=== PATIENT | male | born 1975 | race Caucasian/White ===

== ENCOUNTER 2021-10-28 05:20 | Emergency (ER) | payer MEDICAID ==
[~2021-10-28] VITALS: Ht 162.6 cm; Wt 46.0 kg
[~2021-10-28 05:20] MED LIST: METH-818 PO
[2021-10-28] MEDS ORDERED: MIDAZOLAM HCL 2 MG/2 ML VIAL IV ONE (05:45)
[2021-10-28] MEDS ORDERED: SODIUM CHLORIDE 0.9% 1,000 ML IV ONE (05:45)
[2021-10-28] MEDS ORDERED: CHLORDIAZEPOXIDE 25MG CAPSULE PO ONE (05:45)
[2021-10-28 07:03] LABS: CHLORIDE 97 mEq/L (98-107)
[2021-10-28 07:06] LABS: BASOPHILS % 0.5 % (0.0-2.0); HEMATOCRIT. 40.1 % (42.0-52.0); HEMOGLOBIN. 13.4 g/dL (14.0-18.0); LYMPHOCYTES % 7.3 % (20.0-50.0); MEAN CORPUSCULAR HEMOGLOBIN 30.6 pg (28.0-32.0); MEAN CORPUSCULAR VOLUME 91.5 fL (80.0-94.0); MEAN PLATELET VOLUME 8.9 fl (7.4-10.4); MONOCYTES % 6.6 % (2.0-8.0); NEUTROPHILS % 85.6 % (40.0-76.0); PLATELET 67 x1000/uL (130-400); RED BLOOD CELL COUNT 4.39 mill/uL (4.7-6.1); RED CELL DISTRIBUTION WIDTH 14.8 % (11.6-14.6)
[2021-10-28 07:12] LABS: ETHANOL BLOOD < 10 mg/dL
[2021-10-28] MEDS ORDERED: L25 PO (08:19)
[2021-10-28 08:31] VITALS: BP 150/80
== END 2021-10-28 09:16 | disposition home or self-care (01) ==
LOC: ER 05:20
DX: F10.239 Alcohol dependence with withdrawal, unspecified (principal); R10.9 Unspecified abdominal pain; Y90.0 Blood alcohol level of less than 20 mg/100 ml; K70.30 Alcoholic cirrhosis of liver without ascites
CPT/HCPCS: 36415; 80053; 80320; 85025; 96361; 96374; 99283; J2250; J7030; G0480

== ENCOUNTER 2021-12-29 15:42 | Inpatient (IN) | payer MEDICAID ==
[~2021-12-29] VITALS: Ht 167.6 cm; Wt 51.3 kg
[~2021-12-29 15:42] MED LIST changes: +L25 PO
[2021-12-29] MEDS ORDERED: MAGNESIUM 2 G PREMIX 50 ML IV ONE (17:15)
[2021-12-29] MEDS ORDERED: SODIUM CHLORIDE 0.9% 1,000 ML IV ONE (17:15)
[2021-12-29] MEDS ORDERED: LORAZEPAM 2MG/ML CPJ IV ONE (17:30)
[2021-12-29] MEDS ORDERED: FAMOTIDINE 20MG/2ML VIAL IV ONE (17:30)
[2021-12-29] MEDS ORDERED: MAGNESIUM/ALUMINUM HYDROXIDE/SIMETHICONE 30ML UDC PO ONE (17:30)
[2021-12-29 19:29] LABS: BASOPHILS % 1.1 % (0.0-2.0); HEMATOCRIT. 38.6 % (42.0-52.0); HEMOGLOBIN. 12.9 g/dL (14.0-18.0); LYMPHOCYTES % 18.6 % (20.0-50.0); MEAN CORPUSCULAR HEMOGLOBIN 31.2 pg (28.0-32.0); MEAN CORPUSCULAR VOLUME 93.2 fL (80.0-94.0); MEAN PLATELET VOLUME 9.8 fl (7.4-10.4); MONOCYTES % 4.1 % (2.0-8.0); NEUTROPHILS % 76.2 % (40.0-76.0); PLATELET 85 x1000/uL (130-400); RED BLOOD CELL COUNT 4.14 mill/uL (4.7-6.1); RED CELL DISTRIBUTION WIDTH 15.4 % (11.6-14.6)
[2021-12-29 19:33] LABS: CHLORIDE 95 mEq/L (98-107)
[2021-12-29 19:35] LABS: PROTHROMBIN TIME 10.7 sec (9.6-11.0)
[2021-12-29 19:44] LABS: ETHANOL BLOOD 57 mg/dL
[2021-12-29] MEDS ORDERED: CLONIDINE 0.1MG TABLET PO PRN (21:15)
[2021-12-29] MEDS ORDERED: GUAIFENESIN 200MG/10ML SUGAR FREE UDC PO PRN (21:15)
[2021-12-29] MEDS ORDERED: MAGNESIUM/ALUMINUM HYDROXIDE/SIMETHICONE 30ML UDC PO PRN (21:15)
[2021-12-29] MEDS ORDERED: ACETAMINOPHEN 325MG TABLET PO PRN ×2 (21:15)
[2021-12-29] MEDS ORDERED: IPRATROPIUM/ALBUTEROL 0.5-3(2.5)MG/3ML NEB NEB PRN (21:15)
[2021-12-29] MEDS ORDERED: HYDROCODONE/ACETAMINOPHEN 5/325MG TABLET PO PRN (21:15)
[2021-12-29] MEDS: SODIUM CHLORIDE 0.9% 1,000 ML IV SCH (21:52)
[2021-12-29] MEDS: THIAMINE HCL 100MG TABLET PO SCH (21:53)
[2021-12-29 23:35] VITALS: BP 132/72
[2021-12-30] VITALS: BP 132/83
[2021-12-30] MEDS: LORAZEPAM 2MG/ML CPJ IV PRN ×3 (00:56→14:07)
[2021-12-30] MEDS: SODIUM CHLORIDE 0.9% 1,000 ML IV SCH ×2 (03:44→10:35)
[2021-12-30 04:00] VITALS: BP 136/77
[2021-12-30 08:00] VITALS: BP 143/83
[2021-12-30] MEDS ORDERED: FOLIC ACID 1MG TABLET PO SCH (09:00)
[2021-12-30] MEDS ORDERED: ENOXAPARIN 40MG/0.4ML SYR SUBCUT SCH (09:00)
[2021-12-30] MEDS: THIAMINE HCL 100MG TABLET PO SCH (09:05)
[2021-12-30 12:00] VITALS: BP 132/78
== END 2021-12-30 16:57 | disposition left against medical advice (07) | DRG 280 ==
LOC: ER 15:51 → 7EST 19:51 → SUPCPDRO 20:37
PROVIDERS: ADMIT Internal Medicine; ATTEND Internal Medicine
DX: K70.10 Alcoholic hepatitis without ascites (principal); C15.9 Malignant neoplasm of esophagus, unspecified; F10.239 Alcohol dependence with withdrawal, unspecified; R74.01 Elevation of levels of liver transaminase levels; F11.90 Opioid use, unspecified, uncomplicated; Z85.819 Personal history of malignant neoplasm of unspecified site of lip, oral cavity, and pharynx
CPT/HCPCS: 36415; 71045; 76700; 80053; 80320; 83735; 84100; 84484; 85025; 93005; 99285; J1650; J2060; J3475; J3490; J7030; G0480